=== PATIENT | female | born 1935 | race Caucasian/White ===

== ENCOUNTER 2022-04-15 08:48 | Day surgery (SDC) | payer MEDICARE, OTHER ==
--- NOTE | 2022-04-15 07:34 | ANESTHESIA ---
Pre-Anesthesia VS, & Labs - Diagnosis R senile combined cataract - Procedure Extraction cataract w/IOL - NPO >8 hours - Is Patient ?: No - Lab Results Lab results reviewed: Yes Home Medications and Allergies Home Medications: Ambulatory Orders Acetaminophen 1 tab PO DAILY 04/15/22 Donepezil [Aricept] 1 tab PO DAILY 04/15/22 Estradiol [Estrace] 1 tab PO DAILY 04/15/22 Furosemide [Lasix] 1 tab PO DAILY 04/15/22 Loperamide [Imodium] 1 cap PO PRN PRN 04/15/22 Losartan [Cozaar] 100 mg PO DAILY 04/15/22 Magnesium 500 mg PO DAILY 04/15/22 Magnesium Hydroxide [Milk of Magnesia] 1 applic PO PRN PRN 04/15/22 Melatonin 1 tab PO DAILY 04/15/22 Metoprolol Succinate 1 tab PO DAILY 04/15/22 Multivitamin/Iron/Folic Acid [Centrum Adults Tablet] 1 tab PO DAILY 04/15/22 Naproxen 1 cap PO PRN PRN 04/15/22 Allergies/Adverse Reactions: Allergies Allergy/AdvReac Type Severity Reaction Status Date / Time lisinopril Allergy Respiratory Verified 04/15/22 09:34 Penicillins Allergy Rash Verified 04/15/22 09:34 [place] Allergy Anaphylaxis Uncoded 04/15/22 09:34 Anes History & Medical History - Anesthetic History Anesthesia Complications: reports: No previous complications Family history of Anesthesia Complications: Denies Family history of Malignant Hyperthermia: Denies - Medical History Cardiovascular: reports: Hypertension, Other (pulmonary HTN) Pulmonary: reports: None Gastrointestinal: reports: None Psychosocial: reports: No issues indicated History of Cancer?: No Exam General: Alert, Oriented x3, Cooperative Dental: WNL Mouth Openin Fingerbreadth Neck Mobility: Normal Mallampati classification: II Thyromental Distance: 4-6 cm Respiratory: Lungs clear, Normal breath sounds, No respiratory distress Cardiovascular: Regular rate Neurological: Normal speech Mental/Cognitive Status: Alert/Oriented X3, Normal for patient Cognitive Status: Within normal limits Plan Anesthesia Type: General, MAC Consent for Procedure(s) Verified and Reviewed: Yes Code Status: Attempt Resuscitation ASA classification: 3-Severe systemic disease Is this case an emergency?: No
[~2022-04-15 08:48] MED LIST: CYCLOPENTOLATE 1% OPHTH DROPS 2 ML ONE; KETOROLAC 0.45% OPHTH DROPS ONE; PHENYLEPHRINE 2.5% OPHTH 2 ML DROPS ONE; PROPARACAINE 0.5% OPHTH DROPS 15 ML ONE
[2022-04-15] MEDS ORDERED: LACTATED RINGERS 1,000 ML IV ONE ×2 (08:50→10:38)
[2022-04-15] MEDS ORDERED: MIDAZOLAM 2 MG/2 ML VIAL ONE (09:35)
[2022-04-15] MEDS ORDERED: BSS/LIDOCAINE/EPINEPHRINE 1 ML VIAL ONE (09:41)
[2022-04-15] MEDS ORDERED: TIMOLOL 0.5% OPHTH DROPS ONE (09:41)
[2022-04-15] MEDS ORDERED: TRIAMCIN/MOXIFLOX OPHTHALMIC 0.6 ML VIAL IO ONE ×2 (09:41→10:31)
[2022-04-15] MEDS ORDERED: BRIMONIDINE 0.2% OPHTH DROPS 5 ML ONE (09:41)
[2022-04-15] MEDS ORDERED: EPINEPHrine 1 MG/ML AMP ONE (09:41)
[2022-04-15] MEDS ORDERED: VANCOMYCIN OPHTH (TOPICAL) 10 MG/ML SYRINGE ONE (09:42)
[2022-04-15] MEDS ORDERED: TIMOLOL 0.5% OPHTH DROPS OPTH ONE (10:30)
[2022-04-15] MEDS ORDERED: BRIMONIDINE 0.2% OPHTH DROPS 5 ML OPTH ONE (10:30)
[2022-04-15] MEDS ORDERED: BSS/LIDOCAINE/EPINEPHRINE 1 ML SYRINGE IO ONE (10:30)
[2022-04-15] MEDS ORDERED: EPINEPHrine 1 MG/ML AMP IR ONE (10:30)
[2022-04-15] MEDS ORDERED: VANCOMYCIN OPHTH (TOPICAL) 10 MG/ML SYRINGE TOP ONE (10:31)
[2022-04-15] MEDS ORDERED: PROPARACAINE 0.5% OPHTH DROPS 15 ML RIGHTEYE ONE (10:31)
--- NOTE | 2022-04-15 10:40 | OPERATIVE REPORT ---
Operative Report - Other Other Information/Narrative: Date of Surgery: 04/15/22 Preop Dx: Visually significant cataract right eye. This was the first cataract surgery. Postop Dx: Same Procedure: Phacoemulsification with posterior chamber intraocular lens implant right eye Surgeon: Dr. 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 Best corrected visual acuity was 20/125 with glare to 20/630 vision in the right eye. Indications for surgery were: - Overall decrease in vision - Difficulty reading - Difficulty seeing words, closed captions, or game scores on TV The patient was consented at length concerning the risks and benefits of cataract surgery after which the patient expressed a desire to proceed with surgery. Operative Procedure: The patient was taken into OR#3 and placed under monitored anesthesia care. A surgical time-out was conducted confirming correct patient, correct procedure, and correct surgical site. The patient was given topical anesthesia and then prepped and draped in the usual sterile fashion. The eye was entered at the 6 and 3 oclock positions. Intracameral Shugarcaine was injected into the anterior chamber followed by a dispersive viscoelastic. A continuous-tear curvilinear capsulorhexis was performed. The nucleus was hydrodissected and phacoemulsified. The cortex was evacuated using automated infusion and aspiration. A cohesive viscoelastic was injected into the capsular bag and a 19.5 diopter intraocular lens was inserted into the bag. Infusion and aspiration were used to evacuate the viscoelastic materials from the eye. The wounds were hydrated and the eye inflated to physiologic pressure using balanced salt solution. Approximately 0.25ml of a mixture of triamcinolone and moxifloxacin was injected trans-sclerally into the vitreous in the inferotemporal quadrant using a 30 gauge cannula. An additional 0.55ml of a mixture of triamcinolone and moxifloxacin was injected subconjunctivally in the superior quadrant for infection and inflammation prophylaxis. Wound integrity was checked with Weck-Carli sponges. The patient was taken from the operating room in good condition and given post-op instructions.
--- NOTE | 2022-04-15 10:50 | ANESTHESIA POST OP EVALUATION ---
Anesthesia Post Eval - Post Anesthesia Eval Vitals: Last Vital Signs Temp 36.9 C 04/15/22 10:38 Pulse 86 04/15/22 10:42 Resp 25 H 04/15/22 10:42 BP 207/88 H 04/15/22 10:42 Pulse Ox 100 04/15/22 10:42 O2 Flow Rate CV Function Including HR & BP: Stable Pain Control: Satisfactory Nausea & Vomiting: Negative Mental Status: Baseline Respiratory Status: Airway Patent Hydration Status: Satisfactory Anesthesia Complications: None
[2022-04-15 10:54] VITALS: BP 186/84
== END 2022-04-15 08:49 | disposition home or self-care (01) ==
LOC: SDS 08:48
PROVIDERS: ATTEND Ophthalmology
DX: H25.811 Combined forms of age-related cataract, right eye (principal)
CPT/HCPCS: 66984; A9270; J3490; J7120

== ENCOUNTER 2022-05-27 06:48 | Day surgery (SDC) | payer MEDICARE, OTHER ==
[2022-05-27] MEDS ORDERED: MIDAZOLAM 2 MG/2 ML VIAL ONE (07:13)
--- NOTE | 2022-05-27 07:15 | ANESTHESIA ---
Pre-Anesthesia VS, & Labs - Diagnosis left senile cataract - Procedure left cataract extraction with IOL Height: 5 ft 2 in - NPO >8 hours - Is Patient ?: No Home Medications and Allergies Acetaminophen 1 tab PO DAILY 04/15/22 Donepezil [Aricept] 1 tab PO DAILY 04/15/22 Estradiol [Estrace] 1 tab PO DAILY 04/15/22 Furosemide [Lasix] 1 tab PO DAILY 04/15/22 Loperamide [Imodium] 1 cap PO PRN PRN 04/15/22 Losartan [Cozaar] 100 mg PO DAILY 04/15/22 Magnesium 500 mg PO DAILY 04/15/22 Magnesium Hydroxide [Milk of Magnesia] 1 applic PO PRN PRN 04/15/22 Melatonin 1 tab PO DAILY 04/15/22 Metoprolol Succinate 1 tab PO DAILY 04/15/22 Multivitamin/Iron/Folic Acid [Centrum Adults Tablet] 1 tab PO DAILY 04/15/22 Naproxen 1 cap PO PRN PRN 04/15/22 Allergies/Adverse Reactions: Allergies Allergy/AdvReac Type Severity Reaction Status Date / Time lisinopril Allergy Respiratory Verified 04/15/22 09:34 Penicillins Allergy Rash Verified 04/15/22 09:34 [place] Allergy Anaphylaxis Uncoded 04/15/22 09:34 Anes History & Medical History - Anesthetic History Anesthesia Complications: reports: No previous complications - Medical History Cardiovascular: reports: Hypertension, Other Pulmonary: reports: None Gastrointestinal: reports: None Urinary: reports: Incontinence Musculoskeletal: reports: Osteoarthritis Endocrine/Autoimmune: reports: None Skin: reports: None - Surgical History General: reports: Cholecystectomy Eyes Ears Nose Throat (EENT): reports: Cataracts Gynecologic: reports: Hysterectomy Exam General: Alert, Oriented x3, Cooperative Dental: WNL Mallampati classification: I Thyromental Distance: greater than 6 cm Respiratory: Lungs clear Cardiovascular: Regular rate Plan Anesthesia Type: MAC Consent for Procedure(s) Verified and Reviewed: Yes Code Status: Attempt Resuscitation ASA classification: 2-Mild systemic disease Is this case an emergency?: No
[2022-05-27] MEDS ORDERED: LACTATED RINGERS 1,000 ML IV ONE (07:17)
[2022-05-27] MEDS ORDERED: EPINEPHrine 1 MG/ML AMP IR ONE (07:40)
[2022-05-27] MEDS ORDERED: TIMOLOL 0.5% OPHTH DROPS OPTH ONE (07:40)
[2022-05-27] MEDS ORDERED: BRIMONIDINE 0.2% OPHTH DROPS 5 ML OPTH ONE (07:40)
[2022-05-27] MEDS ORDERED: BSS/LIDOCAINE/EPINEPHRINE 1 ML SYRINGE IO ONE (07:41)
[2022-05-27] MEDS ORDERED: PROPARACAINE 0.5% OPHTH DROPS 15 ML LEFTEYE ONE (07:41)
[2022-05-27] MEDS ORDERED: TRIAMCIN/MOXIFLOX OPHTHALMIC 0.6 ML VIAL IO ONE ×2 (07:41→07:46)
[2022-05-27] MEDS ORDERED: VANCOMYCIN OPHTH (TOPICAL) 10 MG/ML SYRINGE TOP ONE (07:41)
[2022-05-27] MEDS ORDERED: EPINEPHrine 1 MG/ML AMP ONE (07:46)
[2022-05-27] MEDS ORDERED: TIMOLOL 0.5% OPHTH DROPS ONE (07:47)
[2022-05-27] MEDS ORDERED: VANCOMYCIN OPHTH (TOPICAL) 10 MG/ML SYRINGE ONE (07:47)
[2022-05-27] MEDS ORDERED: BRIMONIDINE 0.2% OPHTH DROPS 5 ML ONE (07:47)
[2022-05-27] MEDS ORDERED: BSS/LIDOCAINE/EPINEPHRINE 1 ML VIAL ONE (07:47)
[2022-05-27] MEDS ORDERED: LACTATED RINGERS 950 ML IV ONE (08:02)
--- NOTE | 2022-05-27 08:03 | OPERATIVE REPORT ---
Operative Report - Other Other Information/Narrative: Date of Surgery: 05/27/22 Preop Dx: Visually significant cataract left eye. Cataract surgery was performed in the right eye on . Postop Dx: Same Procedure: Phacoemulsification with posterior chamber intraocular lens implant left eye Surgeon: Dr. Enoch Calderon Anesthesia: Monitored anesthesia care Complications: None Operative Indications: This is a 86-year-old F with progressive vision loss in the left eye due to 3+ nuclear sclerotic and 3+ cortical cataract. Best corrected visual acuity was 20/30 with glare to 20/250 vision in the left eye. Indications for surgery were: - Difficulty reading - Difficulty seeing words, closed captions, or game scores on TV - Difficulty seeing street signs - Difficulty driving in low light or at night - Difficulty driving at night because of headlights from other vehicles The patient was consented at length concerning the risks and benefits of cataract surgery after which the patient expressed a desire to proceed with surgery. Operative Procedure: The patient was taken into OR#3 and placed under monitored anesthesia care. A surgical time-out was conducted confirming correct patient, correct procedure, and correct surgical site. The patient was given topical anesthesia and then prepped and draped in the usual sterile fashion. The eye was entered at the 6 and 3 oclock positions. Intracameral Shugarcaine was injected into the anterior chamber followed by a dispersive viscoelastic. A continuous-tear curvilinear capsulorhexis was performed. The nucleus was hydrodissected and phacoemulsified. The cortex was evacuated using automated infusion and aspiration. A cohesive viscoelastic was injected into the capsular bag and a 17.5 diopter intraocular lens was inserted into the bag. Infusion and aspiration were used to evacuate the viscoelastic materials from the eye. The wounds were hydrated and the eye inflated to physiologic pressure using balanced salt solution. Approximately 0.25ml of a mixture of triamcinolone and moxifloxacin was injected trans-sclerally into the vitreous in the inferotemporal quadrant using a 30 gauge cannula. An additional 0.25ml of a mix ture of triamcinolone and vancomycin was injected subconjunctivally in the superior quadrant for infection and inflammation prophylaxis. Wound integrity was checked with Weck-Carli sponges. The patient was taken from the operating room in good condition and given post-op instructions.
--- NOTE | 2022-05-27 08:13 | ANESTHESIA POST OP EVALUATION ---
Anesthesia Post Eval - Post Anesthesia Eval Vitals: Last Vital Signs Temp 36.3 C L 05/27/22 07:54 Pulse 106 H 05/27/22 07:54 Resp 19 05/27/22 07:54 BP 141/76 H 05/27/22 07:54 Pulse Ox 97 05/27/22 07:54 O2 Flow Rate CV Function Including HR & BP: Stable Pain Control: Satisfactory Nausea & Vomiting: Negative Mental Status: Baseline Respiratory Status: Airway Patent Hydration Status: Satisfactory Anesthesia Complications: None
[2022-05-27 08:21] VITALS: BP 151/80
== END 2022-05-27 06:49 | disposition home or self-care (01) ==
LOC: SDS 06:48
PROVIDERS: ATTEND Ophthalmology
DX: H25.812 Combined forms of age-related cataract, left eye (principal); I10 Essential (primary) hypertension; Z98.41 Cataract extraction status, right eye
CPT/HCPCS: 66984; A9270; J3490; J7120